=== PATIENT | female | born 1980 | race Caucasian/White ===

== ENCOUNTER 2021-02-14 07:19 | Emergency (ER) | payer SELFPAY ==
[~2021-02-14] VITALS: Ht 170.2 cm; Wt 59.0 kg
--- NOTE | 2021-02-14 07:22 | NUR ---
at bedside for assessment
[2021-02-14] MEDS ORDERED: methylPREDNISolone SOD SUCC 125 MG/2 ML VIAL IV ONE (07:30)
[2021-02-14] MEDS ORDERED: EPINEPHRINE 1 MG/1 ML AMP SQ ONE (07:30)
[2021-02-14] MEDS ORDERED: diphenhydrAMINE 50 MG/1 ML VIAL IV ONE (07:30)
[2021-02-14] MEDS ORDERED: FAMOTIDINE. 20 MG/2 ML VIAL IV ONE ×2 (07:30→07:37)
[2021-02-14] MEDS ORDERED: IV NORMAL SALINE 1000 ML BAG IV ONE (07:30)
[2021-02-14] MEDS ORDERED: diphenhydrAMINE 50 MG/1 ML VIAL ONE (07:37)
[2021-02-14] MEDS ORDERED: methylPREDNISolone SOD SUCC 125 MG/2 ML VIAL ONE (07:37)
[2021-02-14] MEDS ORDERED: EPINEPHRINE 1 MG/1 ML AMP ONE (07:38)
--- NOTE | 2021-02-14 07:51 | NUR ---
20 g IV placed in right AC
[2021-02-14] MEDS ORDERED: PRED20TA PO (07:53)
[2021-02-14] MEDS ORDERED: FAMO-132 PO (07:53)
[2021-02-14] MEDS ORDERED: DIPH25CA83 PO (07:53)
[2021-02-14] MEDS ORDERED: EPIN0.3P3 IJ (07:53)
--- NOTE | 2021-02-14 08:17 | NUR ---
EPI given SubQ in right lower quadrant of abdomen
--- NOTE | 2021-02-14 08:58 | NUR ---
Patient noted using restroom, IV fluids finished at this time
--- NOTE | 2021-02-14 09:38 | NUR ---
Patient discharged to home in stable condition. Patient states decreased swelling to lips, patient states she feels better. Patient able to ambulate with steady gait. Written and verbal after care instructions given. Patient verbalizes understanding of instructions. Stressed follow up or return to ER for worsening s/s.
[2021-02-14 09:39] VITALS: BP 111/72
== END 2021-02-14 09:40 | disposition home or self-care (01) ==
LOC: ER 07:19
DX: T78.40XA Allergy, unspecified, initial encounter (principal); X58.XXXA Exposure to other specified factors, initial encounter; Z88.8 Allergy status to other drugs, medicaments and biological substances
CPT/HCPCS: 96361; 96372; 96374; 96375; 99284; J0171; J1200; J2930; J3490; A4663; J7030